=== PATIENT | male | born 1965 | race Caucasian/White ===

== ENCOUNTER 2020-10-11 01:44 | Emergency (ER) | payer SELFPAY ==
[~2020-10-11] VITALS: Ht 180.3 cm; Wt 105.0 kg
[2020-10-11] MEDS ORDERED: METFORMIN (02:07)
[2020-10-11] MEDS ORDERED: LISI-604 MT (02:08)
[2020-10-11] MEDS ORDERED: ATOR20TA65 MT (02:09)
[2020-10-11] MEDS ORDERED: LISINOPRIL 40MG TABLET PO ONE (02:30)
[2020-10-11] MEDS ORDERED: ASPIRIN 81MG TABLET PO ONE (02:30)
[2020-10-11] MEDS ORDERED: LORAZEPAM 1MG TABLET PO ONE (02:30)
[2020-10-11 03:14] LABS: HEMATOCRIT. 41.4 % (42.0-52.0); MEAN CORPUSCULAR HEMOGLOBIN 29.8 pg (28.0-32.0); MEAN PLATELET VOLUME 8.8 fl (7.4-10.4); PLATELET 454 x1000/uL (130-400); RED CELL DISTRIBUTION WIDTH 13.3 % (11.6-14.6)
[2020-10-11 03:20] LABS: CHLORIDE 95 mEq/L (98-107)
[2020-10-11 04:44] VITALS: BP 183/104
[2020-10-11 05:14] LABS: PLATELET ESTIMATE NORMAL
== END 2020-10-11 04:51 | disposition home or self-care (01) ==
LOC: ER 01:44
DX: U07.1 COVID-19 (principal); R07.89 Other chest pain; I10 Essential (primary) hypertension; E11.9 Type 2 diabetes mellitus without complications; F41.9 Anxiety disorder, unspecified
CPT/HCPCS: 36415; 71045; 80053; 83880; 84484; 85025; 93005; 99285; C9803; U0003; Z7610